=== PATIENT | male | born 1955 | race Caucasian/White ===

== ENCOUNTER → 2017-07-14 | Outpatient (CLI) | payer BC, OTHER ==
[~2017-07-14] MED LIST: ASPIRIN325 PO; BAYER CHEWABLE81 MG PO; CALCIUM PO; CENTRUM SILVER1 EAC1 PO; CIALIS5 MG PO; EFFIENT10 MG PO; FISH OIL 1,001000 M2 PO; FLOMAX PO; GLUCOSAMINE &1 EACH PO; LISINOPRIL10 MG PO; PRAVACHOL40 MG PO; TOPROL XL25 MG PO; TUMS PO; VITCB500GO PO; ZOCOR PO
== END ==
LOC: RAD 14:59
DX: M16.12 Unilateral primary osteoarthritis, left hip (principal); M21.852 Other specified acquired deformities of left thigh; M19.072 Primary osteoarthritis, left ankle and foot; Z87.81 Personal history of (healed) traumatic fracture

== ENCOUNTER 2019-12-05 10:44 | Day surgery (SDC) | payer BC, OTHER ==
[2019-11-29 09:30] LABS: HEMATOCRIT 46.3 % (42.0-52.0); HEMOGLOBIN 16.2 gm/dL (14.0-18.0); MCH 33.2 pg (26.0-34.0); RBC 4.88 mil/uL (4.50-6.00); RDW 12.7 % (10.5-14.5); WBC 3.6 thou/uL (4.0-11.0)
[2019-11-29 09:41] LABS: ALBUMIN 3.9 g/dL (3.4-5.0); CALCIUM 8.9 mg/dL (8.5-10.1); CREATININE 0.9 mg/dL (0.7-1.3); INR 1.1; POTASSIUM 4.5 mmol/L (3.5-5.1); PROTIME 11.1 Seconds (9.3-11.4)
[2019-11-29 09:52] LABS: URINE BILIRUBIN NEGATIVE (Negative); URINE BLOOD NEGATIVE (Negative); URINE CLARITY CLEAR; URINE COLOR YELLOW; URINE GLUCOSE-RANDOM* 1+ (Negative); URINE KETONES NEGATIVE (Negative); URINE LEUKOCYTES-REFLEX NEGATIVE (Negative); URINE NITRITE-REFLEX NEGATIVE (Negative); URINE PROTEIN (DIPSTICK) NEGATIVE (Negative); URINE SPECIFIC GRAVITY >= 1.030 (1.005-1.035); URINE UROBILINOGEN 0.2 E.U./dl (0.2-1.0)
--- NOTE | 2019-11-29 14:36 | EKG ---
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
[2019-11-30 00:07] LABS: GLYCOHEMOGLOBIN (HGB A1C) 6.8 % (4.8-5.6)
[~2019-12-05] VITALS: Ht 182.9 cm; Wt 101.6 kg
[2019-12-05] VITALS (8 sets, daily range): BP systolic 113–144; BP diastolic 63–87
[~2019-12-05 10:44] MED LIST changes: +CALCIUM 600 +1 EAC8 PO; -CENTRUM SILVER1 EAC1 PO; +CENTRUM SILVER1 EAC5 PO; +COQ-10100 MG PO; +L-LYSINE500 M1 PO; +NIGHTTIME SLEEP50 MG PO; -TUMS PO; +VIAGRA25 MG PO; +ZETIA10 MG PO
--- NOTE | 2019-12-05 19:43 | NUR ---
PATIENT ADMITTED FROM OR, RIGHT TOTAL KNEE REPLACEMENT, PATIENT ARRIVED AT 1600. C/O MILD PAIN WITH RIGHT KNEE. PATIENT HAS LEFT FOREARM IV IN PLACE. PATIENT HAS RIGHT KNEE ZULAY DRESSING IN PLACE, JIGNESH SHAH, SCD'S, POLAR PACK. PATIENT HAD DINNER/REGULAR DIET. PATIENT VOIDING PER URINAL. ADMISSION DONE, EXCEPT PLAN OF CARE. REPORT GIVEN TO SARITA/RN.
[2019-12-06 00:06] VITALS: BP 120/68
[2019-12-06 03:49] VITALS: BP 123/76
--- NOTE | 2019-12-06 03:50 | NUR ---
ASSESSED AT START OF SHIFT 1900. PT A&OX4. MILD PAIN OF 2/10 IN RIGHT KNEE. IV INTACT AND FLUIDS INFUISING. SCD'S, ZULAY DRESSING AND POLAR PACK IN PLACE. TOLERATED DIET WELL. URINAL AT BEDSIDE. INCENTIVE SPIROMETER ENCOURAGED. FALL PREC IN PLACE AND CALL LIGHT IN USE WILL CONT WITH POC TILL EOS.
[2019-12-06 06:23] LABS: HEMATOCRIT 43.5 % (42.0-52.0); HEMOGLOBIN 14.9 gm/dL (14.0-18.0); MCH 32.7 pg (26.0-34.0); MCHC 34.2 g/dL (28.0-37.0); MCV 95.5 fL (80.0-100.0); RBC 4.56 mil/uL (4.50-6.00); RDW 12.6 % (10.5-14.5); WBC 7.1 thou/uL (4.0-11.0)
[2019-12-06 07:51] VITALS: BP 116/70
[2019-12-06 12:56] VITALS: BP 116/70
[2019-12-06 12:59] VITALS: BP 116/70
--- NOTE | 2019-12-06 13:41 | NUR ---
CM REVIEWED CHART AND SPOKE WITH PT. PT LIVES AT HOME WITH HIS IN A HOUSE. PT REPORTS HAVING ABOUT ONE STEP TO ENTER THE HOME AND NO STEPS ONCE INSIDE. PT HAS ORDERS TO DISCHARGE HOME TODAY. PT HAS A WALKER AT HOME THAT HE USES FOR AMBULATION. PT REPORTS HE HAS OUTPATIENT THERAPY ARRANGED AT A PLACE NEAR HIS HOUSE (PT UNSURE THE NAME). PT REPORTS NO FURTHER NEEDS FROM CM.
--- NOTE | 2019-12-09 11:20 | O ---
[facility] [place] [address] OPERATIVE REPORT Name: NICOLÁS MCLAIN Room #: DEP [facility]..#: [id number] Admission: 12/05/19 Attend Phys: Satinder Mena MD Discharge: 12/06/19 Date of : 57 Report #: [id number] THIS REPORT FOR: cc: Lee Valiente MD FAM - Family physician unknown Satinder Mena MD ~ CC: [facility] unknown MARLIN Mena DATE OF SERVICE: 12/05/2019 PREOPERATIVE DIAGNOSIS: Right knee osteoarthritis. POSTOPERATIVE DIAGNOSIS: Right knee osteoarthritis. PROCEDURE: Right total knee arthroplasty using Navio robotic assistance. SURGEON: Satinder Mena MD. FLEXO OPERATOR: Yahaira Lau PA-C. INDICATIONS FOR FLEXO OPERATOR: Throughout the case, extensive retraction and manipulation of the knee was required. This was afforded to me by my group fitness assistant department head. ANESTHESIA: LMA with an adductor canal block. IMPLANTS: Dietz and Nephew size 8 Journey II BCS Oxinium femur, size 6 tibia, size 10 constrained polyethylene and size 35 patella. TOURNIQUET TIME: 64 minutes. ESTIMATED BLOOD LOSS: 25 mL. COMPLICATIONS: None. SPECIMENS: None. CONDITION UPON LEAVING THE OPERATING ROOM: Stable. INDICATIONS FOR PROCEDURE: The patient is a 64-year-old gentleman with right knee osteoarthritis. He had failed conservative measures for this and after discussion with him, he elected for right total knee arthroplasty. DESCRIPTION OF PROCEDURE: Risks, benefits, alternatives and complications were [facility] [address] [place] [address] OPERATIVE REPORT Name: NICOLÁS MCLAIN Room #: [place]P [facility] [place].R.#: [id number] Admission: 12/05/19 Attend Phys: Satinder Mena MD Discharge: 12/06/19 Date of : 57 Report #: [id number] discussed in detail with the patient including, but not limited to risk of anesthesia, risk of damage to nerves, arteries, blood vessels, risk for infection, bleeding, risk for continued knee pain, need for reoperation. Informed consent was obtained from the patient. Right knee was appropriately marked in the preoperative holding area. IV Ancef was given for preoperative antibiotics. He was brought to the operating room and placed in supine position on operating room table. LMA anesthesia was induced without complication. Tourniquet was placed on the right thigh. Right lower extremity was prepped and draped in normal sterile fashion. Timeout was performed properly identifying the patient and procedure as well as the instrumentation and the implants. All in the operating room were in agreement. Right lower extremity was exsanguinated, tourniquet was inflated. Tourniquet time was 64 minutes. Standard midline approach to knee was made with 10-blade through the skin. Dissection was taken down sharply to the fascia and deep flaps were developed medially and laterally. Fresh 10-blade was used to make a medial parapatellar arthrotomy and the knee was inspected. There was moderate femoral and tibial osteoarthritis with severe patellofemoral osteoarthritis. ACL and PCL were removed sharply. Reference pins were placed in the femur and the tibia. The knee was then digitally mapped using the Bozuko robotic system. Intraoperative plan was made and we sized the size 8 femur with a size 6 tibia and a size 10 spacer. After acceptance of the intraoperative plan, the distal femoral cut was made with a Navio bur. The femoral cutting block was pinned in place using the Navio placement and the femoral cuts were made. Attention was then turned to the tibia. The medial and lateral meniscus were removed with Bovie cautery. Tibial resection guide was pinned in place using the Navio for placement and tibial resection was made. Tibia was sized, found to be a size 6. A size 6 tibial trial was placed, pinned and punched. A size 8 femoral trial was placed and the box cut was made. This was then trialed with a size 10 polyethylene. Knee was taken through range of motion, found to have good balance medially with 3-4 mm of laxity laterally and deep flexion. It was felt we could make up for this with a constrained implant. A 9 mm was resected from the posterior surface of the patella and a size 35 patellar trial button was placed. Knee was taken through range of motion, found to be stable, found to have good patellar tracking. Trial components were removed. Bony ends were thoroughly irrigated with normal saline. Final size 6 tibia, size 8 Journey II BCS Oxinium femur and a size 35 patella were cemented in place using standard cementation techniques. While the cement cured, a periarticular injection consisting of morphine, ropivacaine, epinephrine and Toradol was placed around the knee joint capsule. After the cement cured, tourniquet was deflated. Hemostasis was obtained with Bovie cautery. Final size 10 constrained polyethylene was placed. A gram of vancomycin was placed deep in the joint. Fascia was closed with 0 Vicryl, skin was closed with 2-0 Vicryl, skin staple and a ZULAY dressing was applied. The [address] [address] OPERATIVE REPORT Name: NICOLÁS MCLAIN Room #: DEP [place] Rico#: [id number] Admission: 12/05/19 Attend Phys: Satinder Mena MD Discharge: 12/06/19 Date of : 57 Report #: [id number] patient tolerated this procedure well and went to recovery room under care of anesthesia postoperatively. <ELECTRONICALLY SIGNED> By: Satinder Mena MD 12/09/19 1120 1623 1815 Satinder Mena MD /nt
== END 2019-12-06 14:18 | disposition home or self-care (01) ==
LOC: OR 10:44 → PRE 11:57 → EDSTATUS 14:38 → OR 14:39 → 4S 15:46 → PRE 16:12 → OR 16:29
PROVIDERS: Orthopaedic Surgery
DX: M17.11 Unilateral primary osteoarthritis, right knee (principal); I10 Essential (primary) hypertension; I25.10 Atherosclerotic heart disease of native coronary artery without angina pectoris; E78.00 Pure hypercholesterolemia, unspecified; E78.5 Hyperlipidemia, unspecified; Z98.890 Other specified postprocedural states; Z79.899 Other long term (current) drug therapy; Z87.891 Personal history of nicotine dependence; Z79.82 Long term (current) use of aspirin; Z11.59 Encounter for screening for other viral diseases
CPT/HCPCS: 10102; 50010; 50101; 50415; 50954; 51130; 51225; 51320; 51412; 52001; 52282; 53000; 53078; 55372; 56527; 56528; 57095; 57103; 57110; 57127; 57180; 62110; 62900; 64043; 65060; 70005

== ENCOUNTER → 2020-10-10 | Outpatient (CLI) | payer BC, OTHER ==
[~2020-10-10] MED LIST changes: +IMDUR 30 MG TAB30 M1 PO; +LOPRESSOR50 MG PO; +METFORMIN HCL500 M3 PO; +NITROSTAT0.4 M1 SUBLING; +PLAVIX 75 MG TA75 MG PO; +SLEEP AID25 M1 PO
== END ==
LOC: LAB 11:20
PROVIDERS: ATTEND Orthopaedic Surgery
DX: Z01.812 Encounter for preprocedural laboratory examination (principal); Z20.822 Contact with and (suspected) exposure to COVID-19

== ENCOUNTER 2020-10-15 10:51 | Observation (INO) | payer BC, OTHER ==
[2020-10-10 10:54] LABS: URINE BILIRUBIN NEGATIVE (Negative); URINE BLOOD NEGATIVE (Negative); URINE CLARITY CLEAR; URINE COLOR YELLOW; URINE GLUCOSE-RANDOM* 2+ (Negative); URINE KETONES TRACE (Negative); URINE LEUKOCYTES-REFLEX NEGATIVE (Negative); URINE NITRITE-REFLEX NEGATIVE (Negative); URINE PROTEIN (DIPSTICK) NEGATIVE (Negative); URINE SPECIFIC GRAVITY >= 1.030 (1.005-1.035)
[2020-10-10 10:55] LABS: HEMATOCRIT 44.1 % (42.0-52.0); MCH 32.1 pg (26.0-34.0); MCHC 34.1 g/dL (28.0-37.0); MCV 94.2 fL (80.0-100.0); RBC 4.68 mil/uL (4.50-6.00); RDW 12.8 % (10.5-14.5); WBC 4.5 thou/uL (4.0-11.0)
[2020-10-10 11:01] LABS: ALBUMIN 3.8 g/dL (3.4-5.0); CALCIUM 8.7 mg/dL (8.5-10.1); CREATININE 0.8 mg/dL (0.7-1.3); POTASSIUM 4.9 mmol/L (3.5-5.1)
[2020-10-10 11:07] LABS: PROTIME 10.9 Seconds (9.3-11.4)
--- NOTE | 2020-10-10 12:22 | EKG ---
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 : 1955 Requested By: Satinder Mena Order Number: [id number] MD: Rosalio Espino Measurements Intervals Peterson Rate: 52 P: 38 PA: 184 QRS: -6 QRSD: 153 T: 7 QT: 435 QTc: 405 Interpretive Statements Sinus rhythm Right bundle branch block Baseline wander in lead(s) I,III,aVL,aVF Compared to ECG 11/29/2019 09:02:06 No significant changes Electronically Signed On 10-10-2020 12:22:17 CDT by Rosalio Espino [email or web address] <ELECTRONICALLY SIGNED> By: Rosalio Espino MD, [facility] 10/10/20 1222 1049 1049 Rosalio Espino MD, [facility] /EPI
[2020-10-11 00:06] LABS: GLYCOHEMOGLOBIN (HGB A1C) 8.1 % (4.8-5.6)
[~2020-10-15] VITALS: Ht 182.9 cm; Wt 103.0 kg
--- NOTE | ~2020-10-15 | O ---
[facility] [place] [address] OPERATIVE REPORT Name: NICOLÁS MCLAIN Room #: 448-P [facility] Ragini Gómez#: [id number] Admission: 10/15/20 Attend Phys: Satinder Mena MD Discharge: Date of : 57 Report #: [id number] THIS REPORT FOR: cc: Jose Estrella MD, Hamid MD Abraham,Satinder Morales MD ~ DATE OF SERVICE: 10/15/2020 PREOPERATIVE DIAGNOSIS: Aseptic loosening, right total knee arthroplasty. POSTOPERATIVE DIAGNOSIS: Aseptic loosening, right total knee arthroplasty. PROCEDURE: Revision of right total knee arthroplasty, all components. SURGEON: Satinder Mena .MD. INSIDE BARREL LATHE OPERATOR: Yahaira Lau PA-C. INDICATIONS FOR INSIDE BARREL LATHE OPERATOR: Throughout the case, extensive retraction and manipulation of the knee was required. This was afforded to me by my election assistant. ANESTHESIA: LMA with an adductor canal block. IMPLANTS: A Dietz and Nephew size 7 revision femoral component with a 6 mm offset mill roll operator and a 20 x 160 mm stem, a size 7 tibial revision baseplate with a 4 mm offset mill roll operator, a size 16 x 160 mm stem, size 11 constrained polyethylene and size 35 patella. TOURNIQUET TIME: 117 minutes. ESTIMATED BLOOD LOSS: 50 mL. COMPLICATIONS: None. SPECIMENS: Intraoperative frozen section was sent and showed no neutrophils per high power field as well as intraoperative cultures were sent. CONDITION UPON LEAVING THE OPERATING ROOM: Stable. INDICATIONS FOR PROCEDURE: The patient is a 65-year-old gentleman who is about 10 months out from right total knee arthroplasty. He has had continued pain in this knee ever since the surgery despite failure of conservative measures and adequate physical therapy. Workup for infection was negative. Bone scan was performed showing increased uptake around the femoral and tibial components. It was felt that he had aseptic loosening of the arthroplasty. After discussion [facility] [address] [place] [address] OPERATIVE REPORT Name: NICOLÁS MCLAIN Room #: 448-P [facility] Ragini Gómez#: [id number] Admission: 10/15/20 Attend Phys: Satinder Mena MD Discharge: Date of : 57 Report #: [id number] with him, he elected for revision right total knee arthroplasty. DESCRIPTION OF PROCEDURE: Risks, benefits, alternatives, complications were discussed in detail with the patient including but not limited to risk of anesthesia, risk of damage to nerves, arteries, blood vessels, risk for infection, bleeding, risk for continued knee pain, need for reoperation. Informed consent was obtained from the patient. Right knee was appropriately marked in the preoperative holding area. IV Ancef was given for preoperative antibiotics. He was brought to the operating room and placed in supine position on the operating room table. LMA anesthesia was induced without complication. Tourniquet was placed on the right thigh. Right lower extremity was prepped and draped in normal sterile fashion. Timeout was performed properly identifying the patient and procedure as well as the instrumentation and the implants. All in the operating room were in agreement. Right lower extremity was exsanguinated, tourniquet was inflated. Tourniquet time was 117 minutes. The previous scar was used and this was opened with a 10 blade through the skin. Dissection was taken down sharply to the fascia and deep flaps were developed medially and laterally. Fresh 10 blade was used to make a medial parapatellar arthrotomy and there was normal-appearing synovial fluid. Cultures of this were taken x 2. Several samples of synovium were taken from both superior, medial and lateral and sent for intraoperative frozen section and revealed no neutrophils per high power field. Medial and lateral gutters were reestablished. The polyethylene was removed and the femoral and tibial components were then removed from the bone with a combination of rigid and flexible osteotomes. The femoral component came out slightly easier than the tibial component, although there was moderate amount of effort needed to remove the components. After component removal, cement was removed from the femoral and tibial bones. The intramedullary canals were then sequentially reamed up to a size 16 for the tibia, a 16 reamer was left in place and the tibia and the tibial plateau was prepared with a cleanout cut. The tibia was sized, found to be a size 7. A size 7 tibial trial with a 4 mm offset mill roll operator at the 3 o'clock position was placed. Femur was then sequentially reamed up to a size 20. Size 20 reamer was left in place. The femur was sized and found to have the best fit with a size 7 femur with a 6 mm offset mill roll operator in the 6 o'clock position. This distal femoral cleanup cut was made. Femoral cutting block was pinned in place. The anterior, posterior and chamfer cuts were made. Femoral component trial was placed. Box cut was made and the knee was then trialled with multiple polyethylenes up to a size 21, at which point, the size 21 polyethylene had the best stability and range of motion. After this, the previous patellar resurfacing component was removed with an oscillating saw and new 35 patellar trial button was placed. Knee was taken through range of motion, found to be stable, found to have good patellar tracking. Trial components were removed. Bony ends were thoroughly irrigated with normal saline. The final components were built on the back table. We elected to use a 10 mm tibial buildup to give us more options with the polyethylene if needed. For the final implant, the [facility] [address] [place] [address] OPERATIVE REPORT Name: NICOLÁS MCLAIN Room #: 448-P [facility] Ragini Gómez#: [id number] Admission: 10/15/20 Attend Phys: Satinder Mena MD Discharge: Date of : 57 Report #: [id number] tibial and femoral implants and the polyethylene patellar button were cemented in place using standard cementation techniques. While the cement cured, a periarticular injection consisting of morphine, ropivacaine, epinephrine and Toradol was placed around the knee joint capsule. After the cement cured, the tourniquet was deflated. Hemostasis was obtained with Bovie cautery. Final size 11 constrained polyethylene was placed. A gram of vancomycin was placed deep in the joint. Fascia was closed with 0 Vicryl, skin was closed with 2-0 Vicryl, skin staple and a ZULAY dressing was applied. The patient tolerated this procedure well. By: [id number] Satinder Mena MD /nt
[2020-10-15 11:40] VITALS: BP 121/76
--- NOTE | 2020-10-15 18:38 | NUR ---
ASSUMED PT CARE AT 1800. PATIENT VSS. A&OX4. PATIENT REPORTING NO PAIN. REPORTS NAUSA, GAVE MEDS PER EMAR. IV PATENT, FLUIDS INFUSING. PATIENT EDUCATED ON HOW TO USE CALL LIGHT. ENDORSING ADMISSION TO NIGHT NURSE. AT BEDSIDE.
[2020-10-15 19:37] VITALS: BP 128/70
[2020-10-16 03:57] VITALS: BP 102/60
--- NOTE | 2020-10-16 05:00 | NUR ---
PT IS PLEASANT AND COOPERATIVE. BEEN USING URINAL.DENIES ANY NAUSEA THRO NOC. ZULAY INTACT TO R KNEE WELL POLAR IRASEMA.AFEBRILE. DID NOT REQUIRE ANY PAIN MEDS. GOOD CSM TO R FOOT. CALLS WITH NEEDS.
[2020-10-16 06:06] LABS: HEMATOCRIT 37.6 % (42.0-52.0); HEMOGLOBIN 13.1 gm/dL (14.0-18.0); MCHC 34.9 g/dL (28.0-37.0); MCV 94.3 fL (80.0-100.0); RBC 3.98 mil/uL (4.50-6.00); RDW 12.8 % (10.5-14.5)
[2020-10-16 08:00] VITALS: BP 103/67
--- NOTE | 2020-10-16 09:11 | NUR ---
ASSESSMENT: CM REVIEWED CHART AND SPOKE WITH PATIENT. PT IS S/P RIGHT TOTAL KNEE REVISION. PT REPORTS LIVING IN A HOUSE WITH HIS . PT REPORTS THAT HIS DAUGHTER AND GRANDDAUGHTER LIVE IN THE BASEMENT. PT REPORTS HAVING 2 STEPS WITH WITH NO HANDRAILS TO ENTER THE HOME AND NO STEPS HE HAS TO USE ONCE INSIDE. PT REPORTS THAT HE HAS A CANE, WALKER, AND WHEELCHAIR AT HOME IF NEEDED BUT IS NORMALLY INDEPENDENT. PT REPORTS THAT HE HAS OUTPATIENT THERAPY ARRANGED AT [facility] TO BEGIN TOMORROW. PT REPORTS HE HAD HH IN THE PAST BUT WAS IN THE LATE 90S. PT PLANS ON WORKING WITH THERAPY TODAY AND HOPEFUL TO DISCHARGE AND BEGIN OUTPATIENT THERAPY TOMORROW. CM WILL CONTINUE TO FOLLOW. PT DOES NOT ANTICIPATE HAVING ANY NEEDS FROM CM.
[2020-10-16 11:57] VITALS: BP 103/67
--- NOTE | 2020-10-16 16:06 | PATH ---
[facility] [place] [address] PATHOLOGY RPT PROCEDURE Name: NICOLÁS MCLAIN Room #: 448-P REMY Gómez#: [id number] Admission: 10/15/20 Date of : 57 Discharge: 10/16/20 Report #: [id number] Path Case #: [id number] [facility] Accession Number: [id number] . 01 Material submitted: . knee - RIGHT KNEE SYNOVIUM. Modifiers: right . 01 Clinical history: . PRESENCE OF RIGHT ARTIFICIAL KNEE JOINT, PAIN DUE TO INTERNAL ORTHOPEDIC PROSTHETIC DEVICES,I MPLANTS AND GRAFTS, INITIAL ENCOUNTER LOOSENING OF PROSTHESIS OF RIGHT TOTAL KNEE REPLACEMENT, SUBSEQUENT ENCOUNTER . 02 Frozen section diagnosis: . FROZEN SECTION DIAGNOSIS (Dr. Tierra Lackey) . FSA1. Right knee synovium, biopsy: - No definite increase in neutrophils identified on FS slide. - Utility Tender Carding sections examined. . These findings are discussed with Dr. Satinder Mena in OR-5 at [facility] and a written report is placed in the patient's chart. . GROSS DESCRIPTION Specimen is received fresh from the OR labeled with the patient's name, and "right knee synovium", consists of multiple red soft tissue fragments measuring an aggregate of approximately 6 x 5 x 2 cm. The patient services representative sections of the synovium are shaved and submitted for frozen section as FSA1, this is subsequently submitted for permanent sections as A1. The remainder of the tissue is submitted for permanent sections as A2 to A5 in entirety. . (IUV:orderly; 10/15/2020 . Frozen section performed at [facility], [address], [place] [address]. IZV/MBR . 02 Diagnosis: Synovium, right knee synovium, biopsy: - Moderate chronic inflammation along with numerous giant cells as well as occasional hemosiderin laden macrophages, compatible with reparative changes. - Reactive synovial hyperplasia. - No increase in neutrophils within the infiltrate. (IUV:pit 10/16/2020) QTP 10/16/2020 1420 Local [facility] [address] [place] [address] PATHOLOGY RPT PROCEDURE Name: NICOLÁS MCLAIN Room #: 448-P REMY Gómez#: [id number] Admission: 10/15/20 Date of : 57 Discharge: 10/16/20 Report #: [id number] Path Case #: [id number] . 02 Electronically signed: . Tierra Lackey MD, Pathologist NPI- [id number] . 03 Gross description: . PLEASE SEE GROSS DESCRIPTION UNDER FROZEN SECTION DIAGNOSIS. /MBR 10/15/2020 1550 Local . 02 Pathologist provided ICD-10: M65.9 . 02 CPT . 479904, [id number] Specimen Comment: A courtesy copy of this report has been sent to [phone] Specimen Comment: [phone] Specimen Comment: Report sent to / DR MANNING Performed at: [address] [place] [id number] MD Tanner Gomez MD Phone: [phone] Performed at: [address] [id number] MD Tierra Lackey MD Phone: [phone] Performed at: [address] [facility] [address], [place], [place] [id number] MD Lalo Batres MD Phone: [phone]
== END 2020-10-16 13:00 | disposition home or self-care (01) ==
LOC: OR 10:51 → 4S 17:36
PROVIDERS: ADMIT Orthopaedic Surgery; ATTEND Orthopaedic Surgery
DX: T84.033A Mechanical loosening of internal left knee prosthetic joint, initial encounter (principal); M17.11 Unilateral primary osteoarthritis, right knee; Z79.899 Other long term (current) drug therapy
CPT/HCPCS: 50010; 50101; 50415; 50954; 51130; 51225; 51320; 51412; 52001; 52282; 53000; 53078; 56528; 57095; 57103; 57180; 62110; 62900; 70005